=== PATIENT | female | born 2000 | race Caucasian/White ===

== ENCOUNTER 2019-12-08 14:06 | Emergency (ER) | payer OTHER, SELFPAY ==
[2019-12-08 14:13] VITALS: BP 146/80; PULSE 90; RESP 16; TEMP 37.1; O2SAT 100; BMI 22.4
[2019-12-08 14:45] LABS: Add Manual Diff / Slide Review NO; Basophils Absolute Auto 100 /uL (0-100); Basophils Percent Auto 0.8 % (0-2); Eosinophils Absolute Auto 0 /uL (0-450); Eosinophils Percent Auto 0.5 % (2-4); Hematocrit 42.8 % (36-46); Hemoglobin 14.2 g/dL (12.0-16.0); Lymphocytes Absolute Auto 1800 /uL (1100-4500); Lymphocytes Percent Auto 27.6 % (25-40); Mean Corpuscular HGB Conc 33.2 % (30-36); Mean Corpuscular Hemoglobin 31.5 PG (26-34); Mean Corpuscular Volume 94.8 fL (80-100); Monocytes Absolute Auto 500 /uL (0-900); Neutrophils Absolute Auto 4200 /uL (1500-7000); Neutrophils Percent Auto 64.1 % (50-75); Platelet Count 134 X10^3/uL (150-400); Red Blood Cell Count 4.51 X10^6/uL (4.0-5.2); Red Cell Distribution Width 12.7 % (11.6-14.8); White Blood Cell Count 6.6 X10^3/uL (4.5-11.0)
[2019-12-08 14:52] LABS: Acetaminophen < 10 ug/mL (10-30); Alanine Aminotransferase 15 IU/L (<35); Albumin 4.6 g/dL (3.5-5.0); Albumin Globulin Ratio 1.4 (1.0-2.8); Alkaline Phosphatase 65 U/L (38-126); Aspartate Aminotransferase 24 IU/L (14-36); BUN Creatinine Ratio 14.5 (6-22); Bilirubin Total 0.6 mg/dL (0.2-1.3); Blood Urea Nitrogen 9 mg/dL (7-17); Calcium 9.4 mg/dL (8.4-10.2); Carbon Dioxide 22 mmol/L (22-32); Chloride 106 mmol/L (98-107); Estimated Glomerular Filt Rate > 60.0 mL/min (>60); Ethanol (ETOH) < 10 mg/dL; Globulin 3.2 g/dL (1.7-4.1); Glucose 93 mg/dL (70-100); HEMOLYSIS < 15 (0-50); Potassium 3.9 mmol/L (3.4-5.1); Salicylate < 1.0 mg/dL (<20); Sodium 138 mmol/L (137-145); Total Protein 7.8 g/dL (6.3-8.2)
--- NOTE | 2019-12-08 15:16 | PC.NURSE ---
pt laying on gurney in rm 13. Pts mom at bedside. Pt changed into safety scrubs under the supervision of this PROOF READER. Pt is tearful and quiet. Door is open and lights are dimmed
[2019-12-08 15:17] LABS: Free T4, Direct Thyroxine 1.11 ng/dL (0.78-2.19)
[2019-12-08 15:31] LABS: Thyroid Stimulating Hormone 1.28 uIU/mL (0.47-4.68)
[2019-12-08] MEDS: hydrOXYzine pamoate 25 MG CAPSULE PO (15:54)
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
[2019-12-08] MEDS: ACETAMINOPHEN 325 MG TABLET 975 MG PO (16:56)
[2019-12-08] MEDS: IBUPROFEN 400 MG TABLET 800 MG PO (16:56)
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
[2019-12-08 17:24] LABS: UR Morphine/Opiate cutoff 300 Negative (Negative); Ur Creatinine Normal (Normal); Ur Specific Gravity Normal (Normal); Urine Amphetamines Negative (Negative); Urine Barbiturates Negative (Negative); Urine Benzodiazepines Negative (Negative); Urine Cocaine Negative (Negative); Urine MDMA Negative (Negative); Urine Methadone Negative (Negative); Urine Methamphetamines Negative (Negative); Urine Oxycodone Negative (Negative); Urine Phencyclidine Negative (Negative); Urine Tetrahydrocannabinol Positive (Negative); Urine Tricyclic Antidepressant Negative (Negative); Urine pH Normal (Normal)
--- NOTE | 2019-12-08 18:09 | PC.NURSE ---
Sal Knox on 1:1 @ 1800. Pt is in rm with Mother at bedside.
--- NOTE | 2019-12-08 18:16 | CM.SWNOTE ---
ULTRA SOUND TECHNICIAN note After assessment, ULTRA SOUND TECHNICIAN calls [facility]. Sugey in Intake at informs ULTRA SOUND TECHNICIAN that has beds available. ULTRA SOUND TECHNICIAN faxes clinicals to . Liu from [facility] calls ULTRA SOUND TECHNICIAN and informs ULTRA SOUND TECHNICIAN of acceptance to [facility]. Details of acceptance as listed below: Accepted to . Accepting Provider is: REY Georges. [address] [place]. [phone]. Check in time is 2029. Intake Contact: Liu. ULTRA SOUND TECHNICIAN informs [facility]. [facility] to coordinate transport. ULTRA SOUND TECHNICIAN provides update to RN Niraj and Provider REY Connors. ULTRA SOUND TECHNICIAN enters patient room and informs patient of acceptance to hospital and explains details of transfer. Patient expresses understanding and agreement with plan. ULTRA SOUND TECHNICIAN expresses hope for patient's recovery to patient and exits room. Pl: Patient to transfer to [facility] for inpatient behavioral health treatment. ROSITA Medrano
--- NOTE | 2019-12-08 18:28 | PC.NURSE ---
Mother has brought in food for Pt. request approved by
--- NOTE | 2019-12-08 19:09 | PC.NURSE ---
[facility] has arrived to transport Pt to [facility]. Pt is using restroom before transport, Nurse is speaking with [facility] team. End Pt 1:1
[2019-12-08 19:15] VITALS: BP 123/71; PULSE 67; RESP 14; O2SAT 98
== END 2019-12-08 21:28 ==
PROVIDERS: Emergency Medicine; Emergency Provider Nurse Practitioner Family
DX: R45.851 Suicidal ideations (principal); F41.9 Anxiety disorder, unspecified; F32.9 Major depressive disorder, single episode, unspecified
CPT/HCPCS: 36415; 80053; 80305; 80320; 80329; 81003; 81025; 84439; 84443; 85025; 99284; G0480